=== PATIENT | male | born 1965 | race Caucasian/White ===

== ENCOUNTER 2022-03-19 11:34 | Inpatient (IN) | payer OTHER ==
[~2022-03-19] VITALS: Ht 190.5 cm; Wt 74.0 kg
[2022-03-19] MEDS ORDERED: PANT-31 PO (11:47)
[2022-03-19] MEDS ORDERED: APIX5TAB PO (11:47)
[2022-03-19] MEDS ORDERED: LOSA-381 PO (11:47)
[2022-03-19 12:36] LABS: BASOPHILS % (AUTO) 0.6 % (0.0-2.0); EOSINOPHILS % (AUTO) 0.8 % (1.0-6.0); HEMATOCRIT 40.8 % (41-53); HEMOGLOBIN 13.7 g/dL (13.5-17.5); LYMPHOCYTES # (AUTO) 1.5 K/uL (1.0-4.8); LYMPHOCYTES % (AUTO) 19.9 % (22.0-44.0); MEAN CORPUSCULAR HEMOGLOBIN 31.4 pg (26.0-34.0); MEAN CORPUSCULAR HGB CONC 33.7 G/dL (31.0-37.0); MEAN CORPUSCULAR VOLUME 93 fL (80-100); MONOCYTES # (AUTO) 0.5 K/uL (0.1-1.0); MONOCYTES % (AUTO) 7.1 % (2.0-9.0); NEUTROPHILS # (AUTO) 5.5 K/uL (1.8-7.7); NEUTROPHILS % (AUTO) 71.6 % (40.0-70.0); PLATELET COUNT (AUTO) 305 K/uL (150-450); RED BLOOD CELL COUNT(AUTO) 4.37 MIL/uL (4.50-5.90); RED CELL DISTRIBUTION WIDTH 14.5 % (11.5-14.5)
[2022-03-19 12:45] LABS: ANION GAP 9 mmol/L (8-16); CALCIUM, TOTAL 9.1 mg/dL (8.8-10.5); CARBON DIOXIDE 27 mmol/L (22-29); CHLORIDE 100 mmol/L (98-107); CREATININE 0.81 mg/dL (0.60-1.30); GLOMERULAR FILTR. RATE CALC > 60 mL/min (>60); GLUCOSE,RANDOM 94 mg/dL (70-110); INR 0.9 (0.9-1.1); POTASSIUM 4.4 mmol/L (3.5-5.1); PROTHROMBIN TIME 9.4 SEC (9.4-11.6); SODIUM SERUM 136 mmol/L (136-145); UREA NITROGEN, BLOOD 13 mg/dL (7-18)
[2022-03-19] MEDS ORDERED: FINA5TAB41 PO (12:47)
[2022-03-19] MEDS ORDERED: NITR0.4T50 SL (12:47)
[2022-03-19] MEDS ORDERED: CELE-84 PO (12:47)
[2022-03-19] MEDS ORDERED: LIFI1DRO OU (12:47)
[2022-03-19] MEDS ORDERED: TAMS-13 PO (12:47)
[2022-03-19] MEDS ORDERED: DILT240C94 PO (12:47)
[2022-03-19 13:08] LABS: B-TYPE NATRIURETIC PEPTIDE 21 pg/mL (0-100)
[2022-03-19 13:10] LABS: ALANINE AMINOTRANSFERASE 34 U/L (12-78); ALBUMIN 3.7 g/dL (3.4-5.0); ALKALINE PHOSPHATASE 80 U/L (46-116); ASPARTATE AMINOTRANSFERASE 25 U/L (15-37); BILIRUBIN,TOTAL 0.3 mg/dL (0.1-1.0); CREATINE KINASE, TOTAL ONLY 124 U/L (39-308); TOTAL PROTEIN, SERUM 7.7 g/dL (6.4-8.2)
[2022-03-19] MEDS ORDERED: ACETAMINOPHEN 325 MG TABLET PO PRN (13:15)
[2022-03-19] MEDS ORDERED: ONDANSETRON HCL 4 MG/2 ML VIAL IVP PRN ×2 (13:15→14:30)
[2022-03-19] MEDS ORDERED: 0.9% SODIUM CHLORIDE 10 ML SYRINGE IVP PRN (13:15)
[2022-03-19] MEDS ORDERED: BISACODYL 10 MG RECTAL RECTAL SUPPOSITORY PR PRN (14:30)
[2022-03-19] MEDS ORDERED: MAGNESIUM HYDROXIDE SUSPENSION 30 ML UDCUP PO PRN (14:30)
[2022-03-19] MEDS ORDERED: ZOLPIDEM TARTRATE 5 MG TABLET PO PRN (14:30)
[2022-03-19] MEDS: HEPARIN SODIUM,PORCINE 5,000 UNITS/ML VIAL SQ SCH (15:46)
[2022-03-19] MEDS ORDERED: MIDAZOLAM HCL 2 MG/2 ML VIAL ONE ×2 (19:48→20:06)
[2022-03-19] MEDS ORDERED: FentaNYL CITRATE PF 100 MCG/2 ML VIAL ONE ×2 (19:48→20:06)
[2022-03-19] MEDS ORDERED: LIDOCAINE/PF 1% 30 ML VIAL ONE (19:49)
[2022-03-19] MEDS ORDERED: IOHEXOL 350 MG/ML 100 ML VIAL ONE (19:49)
[2022-03-19] MEDS ORDERED: SODIUM BICARBONATE 50 MEQ/50 ML VIAL ONE (19:49)
[2022-03-19] MEDS ORDERED: HEPARIN SODIUM 1000 UNITS/NS 500 ML ONE (19:49)
[2022-03-19 19:53] LABS: COVID AG,FIA SOURCE NASOPHARYNGEAL
[2022-03-19 19:54] VITALS: BP 169/91
[2022-03-19] MEDS ORDERED: HEPARIN SODIUM,PORCINE 1,000 UNITS/ML 10 ML VIAL ONE (20:09)
[2022-03-19] MEDS ORDERED: FentaNYL CITRATE PF 100 MCG/2 ML VIAL IVP ONE ×2 (20:15)
[2022-03-19] MEDS ORDERED: LIDOCAINE 1% 30 ML/SOD BICARB 8.4% 4 ML SQ ONE (20:15)
[2022-03-19] MEDS ORDERED: HEPARIN SODIUM,PORCINE 1,000 UNITS/ML 10 ML VIAL IVP ONE (20:15)
[2022-03-19] MEDS ORDERED: IOHEXOL 350 MG/ML 100 ML VIAL IARTER ONE (20:15)
[2022-03-19] MEDS ORDERED: HEPARIN SODIUM 2,000 UNITS in HEPARIN SODIUM 1000 UNITS/NS 1,000 ML IARTER ONE (20:15)
[2022-03-19] MEDS ORDERED: MIDAZOLAM HCL 2 MG/2 ML VIAL IVP ONE ×2 (20:15)
[2022-03-19] MEDS ORDERED: ATROPINE SULFATE 0.1 MG/ML 10 ML SYRINGE IVP ONE (20:45)
[2022-03-19] MEDS: DOCUSATE SODIUM 100 MG CAPSULE PO SCH (21:00)
[2022-03-19 21:09] VITALS: BP 141/96
[2022-03-19 22:04] VITALS: BP 148/86
[2022-03-19] MEDS: TAMSULOSIN HCL 0.4 MG CAPSULE PO SCH (22:06)
[2022-03-19] MEDS: ACETAMINOPHEN 325 MG TABLET PO PRN (22:07)
[2022-03-20] MEDS: ACETAMINOPHEN 325 MG TABLET PO PRN (03:40)
[2022-03-20 05:01] VITALS: BP 112/82
[2022-03-20 07:45] VITALS: BP 119/81
[2022-03-20 08:01] LABS: BASOPHILS % (AUTO) 0.8 % (0.0-2.0); EOSINOPHILS % (AUTO) 1.2 % (1.0-6.0); HEMATOCRIT 38.1 % (41-53); HEMOGLOBIN 12.8 g/dL (13.5-17.5); LYMPHOCYTES # (AUTO) 1.6 K/uL (1.0-4.8); LYMPHOCYTES % (AUTO) 23.5 % (22.0-44.0); MEAN CORPUSCULAR HEMOGLOBIN 31.3 pg (26.0-34.0); MEAN CORPUSCULAR HGB CONC 33.7 G/dL (31.0-37.0); MEAN CORPUSCULAR VOLUME 93 fL (80-100); MONOCYTES # (AUTO) 0.6 K/uL (0.1-1.0); MONOCYTES % (AUTO) 9.5 % (2.0-9.0); NEUTROPHILS # (AUTO) 4.3 K/uL (1.8-7.7); PLATELET COUNT (AUTO) 280 K/uL (150-450); RED CELL DISTRIBUTION WIDTH 14.5 % (11.5-14.5)
[2022-03-20 08:10] LABS: ALANINE AMINOTRANSFERASE 24 U/L (12-78); ALBUMIN 3.1 g/dL (3.4-5.0); ALKALINE PHOSPHATASE 77 U/L (46-116); ANION GAP 6 mmol/L (8-16); ASPARTATE AMINOTRANSFERASE 19 U/L (15-37); BILIRUBIN,TOTAL 0.3 mg/dL (0.1-1.0); CALCIUM, TOTAL 8.5 mg/dL (8.8-10.5); CARBON DIOXIDE 26 mmol/L (22-29); CHLORIDE 103 mmol/L (98-107); CREATININE 0.71 mg/dL (0.60-1.30); GLOMERULAR FILTR. RATE CALC > 60 mL/min (>60); GLUCOSE,RANDOM 105 mg/dL (70-110); POTASSIUM 4.5 mmol/L (3.5-5.1); SODIUM SERUM 135 mmol/L (136-145); TOTAL PROTEIN, SERUM 6.9 g/dL (6.4-8.2); UREA NITROGEN, BLOOD 12 mg/dL (7-18)
[2022-03-20] MEDS: HEPARIN SODIUM,PORCINE 5,000 UNITS/ML VIAL SQ SCH ×2 (08:34)
[2022-03-20] MEDS: TAMSULOSIN HCL 0.4 MG CAPSULE PO SCH (08:35)
[2022-03-20] MEDS: DOCUSATE SODIUM 100 MG CAPSULE PO SCH (08:35)
[2022-03-20] MEDS ORDERED: DILTIAZEM HCL CD 240 MG ER CAPSULE PO SCH (09:00)
[2022-03-20] MEDS ORDERED: FINASTERIDE 5 MG TABLET PO SCH (09:00)
[2022-03-20] MEDS ORDERED: PANTOPRAZOLE SODIUM 40 MG DR TABLET PO SCH (09:00)
[2022-03-20] MEDS ORDERED: CLOPIDOGREL BISULFATE 75 MG TABLET PO SCH (09:00)
[2022-03-20] MEDS ORDERED: CLOP75TA60 PO (09:46)
[2022-03-20 11:12] VITALS: BP 100/67
== END 2022-03-20 13:50 | disposition home or self-care (01) | DRG 175 ==
LOC: EDUNIT# 11:34 → EMS 11:34 → AHU 12:59 → 5S 18:02
PROVIDERS: ADMIT Internal Medicine; ATTEND Internal Medicine
PROC: 4A023N7 Measurement of Cardiac Sampling and Pressure, Left Heart, Percutaneous Approach (ICD-10-PCS; principal; 2022-03-19)
PROC: 02703ZZ Dilation of Coronary Artery, One Artery, Percutaneous Approach (ICD-10-PCS; 2022-03-19)
PROC: B2111ZZ Fluoroscopy of Multiple Coronary Arteries using Low Osmolar Contrast (ICD-10-PCS; 2022-03-19)
PROC: B2151ZZ Fluoroscopy of Left Heart using Low Osmolar Contrast (ICD-10-PCS; 2022-03-19)
DX: I25.110 Atherosclerotic heart disease of native coronary artery with unstable angina pectoris (principal); E78.5 Hyperlipidemia, unspecified; I10 Essential (primary) hypertension; N40.0 Benign prostatic hyperplasia without lower urinary tract symptoms; I48.91 Unspecified atrial fibrillation; Z20.822 Contact with and (suspected) exposure to COVID-19; Z79.01 Long term (current) use of anticoagulants; Z79.02 Long term (current) use of antithrombotics/antiplatelets; Z95.5 Presence of coronary angioplasty implant and graft; Z95.818 Presence of other cardiac implants and grafts; Z79.899 Other long term (current) drug therapy; Z88.5 Allergy status to narcotic agent
CPT/HCPCS: 71045; 75960; 80053; 82550; 83880; 84484; 85025; 85610; 85730; 92920; 93005; 99285; J0461; J1644; J2250; J3010; J3490; Q9967; 36415-L1; 36415-TC

== ENCOUNTER 2022-07-16 07:38 | Inpatient (IN) | payer OTHER ==
[~2022-07-16] VITALS: Ht 190.5 cm; Wt 80.5 kg
[2022-07-16] VITALS (13 sets, daily range): BP systolic 120–135; BP diastolic 66–85
[~2022-07-16 07:38] MED LIST: ACET-784 PO; APIX5TAB PO; CLOP75TA60 PO; DILT240C81 PO; FERR325T27 PO; FINA5TAB41 PO; MULT-1259 PO; NITR0.4T50 SL; PANT40TA54 PO; ROSU20TA73 PO; SODIUM CHLORIDE 0.9% 1,000 ML IV ONE; TAMS-13 PO
[2022-07-16] MEDS ORDERED: CELE200 PO (08:06)
[2022-07-16] MEDS ORDERED: TRAM-559 PO (08:06)
[2022-07-16] MEDS ORDERED: DILT-72 PO (08:06)
[2022-07-16] MEDS ORDERED: LOSA-381 PO (08:06)
[2022-07-16] MEDS ORDERED: METO25XL PO (08:06)
[2022-07-16] MEDS ORDERED: DIAZEPAM 5 MG TABLET ONE (08:14)
[2022-07-16] MEDS ORDERED: DiphenhydrAMINE HCL 50 MG CAPSULE ONE (08:14)
[2022-07-16] MEDS ORDERED: ASPIRIN 81 MG CHEWABLE TABLET ONE (08:15)
[2022-07-16] MEDS ORDERED: DIAZEPAM 5 MG TABLET PO ONE (09:00)
[2022-07-16] MEDS ORDERED: ASPIRIN 81 MG CHEWABLE TABLET PO ONE (09:00)
[2022-07-16] MEDS ORDERED: DiphenhydrAMINE HCL 50 MG CAPSULE PO ONE (09:00)
[2022-07-16] MEDS ORDERED: MIDAZOLAM HCL 2 MG/2 ML VIAL ONE (11:18)
[2022-07-16] MEDS ORDERED: FentaNYL CITRATE PF 100 MCG/2 ML VIAL ONE (11:18)
[2022-07-16] MEDS ORDERED: IOHEXOL 300 MG/ML 100 ML VIAL ONE (11:19)
[2022-07-16] MEDS ORDERED: SODIUM BICARBONATE 50 MEQ/50 ML VIAL ONE (11:19)
[2022-07-16] MEDS ORDERED: LIDOCAINE/PF 1% 30 ML VIAL ONE (11:19)
[2022-07-16] MEDS ORDERED: HEPARIN SODIUM 1000 UNITS/NS 500 ML ONE (11:20)
[2022-07-16] MEDS ORDERED: LIDOCAINE 1% 30 ML/SOD BICARB 8.4% 4 ML SQ ONE (12:00)
[2022-07-16] MEDS ORDERED: MIDAZOLAM HCL 2 MG/2 ML VIAL IVP ONE ×3 (12:00→13:15)
[2022-07-16] MEDS ORDERED: IOHEXOL 300 MG/ML 100 ML VIAL IARTER ONE ×2 (12:00→12:45)
[2022-07-16] MEDS ORDERED: FentaNYL CITRATE PF 100 MCG/2 ML VIAL IVP ONE ×3 (12:00→13:15)
[2022-07-16] MEDS ORDERED: HEPARIN SODIUM,PORCINE 1,000 UNITS/ML 10 ML VIAL IVP ONE ×3 (12:00→13:15)
[2022-07-16] MEDS ORDERED: HEPARIN SODIUM 1000 UNITS/NS 1,000 ML IARTER ONE (12:00)
[2022-07-16] MEDS ORDERED: MAGNESIUM HYDROXIDE SUSPENSION 30 ML UDCUP PO PRN (14:15)
[2022-07-16] MEDS ORDERED: ACETAMINOPHEN 325 MG TABLET PO PRN (14:15)
[2022-07-16] MEDS ORDERED: ONDANSETRON HCL 4 MG/2 ML VIAL IVP PRN (14:15)
[2022-07-16] MEDS ORDERED: FAMOTIDINE 20 MG TABLET PO SCH (21:00)
[2022-07-16] MEDS ORDERED: APIXABAN 5 MG TABLET PO SCH (21:00)
[2022-07-16] MEDS ORDERED: DOCUSATE SODIUM 100 MG CAPSULE PO SCH (21:00)
[2022-07-16] MEDS ORDERED: ATORVASTATIN CALCIUM 40 MG TABLET PO SCH (21:00)
[2022-07-17] MEDS ORDERED: CLOPIDOGREL BISULFATE 75 MG TABLET PO SCH (09:00)
[2022-07-17] MEDS ORDERED: METOPROLOL SUCCINATE 25 MG ER TABLET PO SCH (09:00)
== END 2022-07-16 22:02 | disposition short-term general hospital (02) | DRG 191 ==
LOC: 5S 07:38 → EDSTATUS 09:00
PROVIDERS: ADMIT Internal Medicine; ATTEND Internal Medicine Interventional Cardiology
PROC: 4A023N7 Measurement of Cardiac Sampling and Pressure, Left Heart, Percutaneous Approach (ICD-10-PCS; principal; 2022-07-16)
PROC: B211YZZ Fluoroscopy of Multiple Coronary Arteries using Other Contrast (ICD-10-PCS; 2022-07-16)
PROC: 02JA3ZZ Inspection of Heart, Percutaneous Approach (ICD-10-PCS; 2022-07-16)
PROC: B41FYZZ Fluoroscopy of Right Lower Extremity Arteries using Other Contrast (ICD-10-PCS; 2022-07-16)
DX: I25.110 Atherosclerotic heart disease of native coronary artery with unstable angina pectoris (principal); E78.5 Hyperlipidemia, unspecified; I48.0 Paroxysmal atrial fibrillation; I10 Essential (primary) hypertension; Z95.5 Presence of coronary angioplasty implant and graft; Z79.01 Long term (current) use of anticoagulants; Z79.899 Other long term (current) drug therapy
CPT/HCPCS: 37229; 92920; 93005; C1724; G0378; J1644; J2250; J3010; J3490; Q9967